=== PATIENT | male | born 1995 | race African-American/Black ===

== ENCOUNTER 2023-02-04 14:31 | Emergency (ER) | payer SELFPAY ==
[2023-02-04 14:31] VITALS: BP 118/63; PULSE 90; RESP 18; O2SAT 100
[2023-02-04 14:40] VITALS: BP 118/63; PULSE 96; RESP 20; TEMP 36.9; O2SAT 100
--- NOTE | 2023-02-04 14:41 | ECG_ITS ---
Measurements Intervals [place] Rate: 96 P: 69 [place]: 151 QRS: 64 QRSD: 86 T: 35 QT: 329 QTc: 416 Interpretive Statements SINUS RHYTHM ST ELEVATION, EARLY REPOLARIZATION [ST ELEVATION WITH NORMALLY INFLECTED T WAVE] OTHERWISE NORMAL ECG NO PREVIOUS ECG AVAILABLE FOR COMPARISON Electronically Signed On 02-05-2023 14:38:32 CDT by Aldair Dorantes M.D.
--- NOTE | 2023-02-04 15:01 | ED.GENADULT ---
HPI - General Adult General Chief complaint: Abdominal Pain Stated complaint: ams Time Seen by Provider: 02/04/23 14:46 Source: patient Limitations: no limitations History of Present Illness HPI narrative: Patient is a 27-year-old male presents to the emergency department for multiple complaints. Patient notes he was at class just prior to arrival approximately 1 hour ago and progressively and gradually noticed a generalized headache, generalized weakness, nausea without any emesis in addition to associated chills and generalized body aches. Patient does admit to being very hot out and he has not consumed anything in regard to fluids or food intake today. Patient notes that last night and earlier this morning he was otherwise feeling well. Patient admits to his symptoms improving. Patient denies trying anything for his symptoms. Patient has 2 history of these constellation of symptoms in the past when he had a fever without any significant diagnosis and it was near the COVID time. Patient denies any sick contacts. Patient denies any recent injuries, recent illness, numbness, focal weakness, abdominal pain, dysuria, hematuria, urinary frequency, urinary urgency, melena, constipation, sore throat, nasal congestion, vision changes, confusion, chest pain, shortness of breath, cough. Related Data Allergies Allergy/AdvReac Type Severity Reaction Status Date / Time No Known Allergies Allergy Verified 02/04/23 14:43 PMFSH Comments At time of signature, I have reviewed and agree with nursing past medical, surgical, social and family history unless otherwise noted. Please see nursing chart for further information. There is no relevant family history pertinent to the presenting complaint. Exam Narrative: CONST: No acute distress. Well nourished. HENMT: Head is normocephalic and atraumatic. Tacky mucous membranes. No posterior oropharynx erythema. EYES: No conjunctival icterus, injection, or pallor. PERRL. NECK: No meningeal signs. RESP: Able to speak in full sentences. Normal respiratory effort. CTAB. CARDIO: Regular rate. Regular rhythm. 2+ DP and radial pulses bilaterally. GI: Nondistended. No tenderness to palpation. Soft. : No CVA tenderness to palpation. SKIN: No rashes or lesions noted on exposed skin. NEURO: Oriented x3. Moves all extremities. EXTREM: No pedal edema. PSYCH: Normal affect. Course Vital Signs Vital signs: Vital Signs Pulse Rate 90 02/04/23 14:31 Respiratory Rate 18 02/04/23 14:31 Blood Pressure 118/63 02/04/23 14:31 Pulse Oximetry 100 02/04/23 14:31 Oxygen Delivery Room Air 02/04/23 14:31 Temperature 98.5 F 02/04/23 14:40 Pulse Rate 80 02/04/23 17:01 Respiratory Rate 12 02/04/23 17:01 Blood Pressure 122/72 02/04/23 17:01 Pulse Oximetry 100 02/04/23 17:01 Oxygen Delivery Room Air 02/04/23 14:31 Medical Decision Making MDM Narrative Medical decision making narrative: Patient presents as noted above, vitals stable, no acute distress. Suspect viral syndrome, and COVID testing positive. Patient refused IV, tolerating PO, stable gait. Patient instructed on isolation, work/school note provided, motrin and tylenol as needed for fever/pain, rest and hydration, return precautions, provided with follow up to a PCP to establish care, low risk for severe disease no indications for Paxlovid. Patient requesting discharge and discharged in stable condition with additional verbal and printed discharge instructions, all questions answered, patient agreed with plan of care. Differential Diagnosis Differential Diagnosis: Viral syndrome, URI, dehydration. Medical Records Medical records reviewed: Yes I reviewed the external patient's medical records. Vital Signs Vital Signs: Vital Signs Pulse Rate 90 02/04/23 14:31 Respiratory Rate 18 02/04/23 14:31 Blood Pressure 118/63 02/04/23 14:31 Pulse Oximetry 100 02/04/23 14:31 Oxygen Delivery Room Air
[2023-02-04] MEDS: ACETAMINOPHEN 500 MG TABLET 1000 MG PO (15:27)
[2023-02-04] MEDS: ONDANSETRON HCL ODT 4 MG TABLET PO (15:27)
[2023-02-04 16:09] LABS: Influenza A QL RT-PCR Negative (Negative); Influenza B QL RT-PCR Negative (Negative); SARS-CoV-2 RNA PCR Positive (Negative)
[2023-02-04 17:01] VITALS: BP 122/72; PULSE 80; RESP 12; O2SAT 100
--- NOTE | 2023-02-04 17:20 | PC.NURSE ---
Reviewed d/c instructions with pt. Pt reports he has no way to get home. This RN called Nayeli with [facility] about finding a ride for the pt. She states she will try to obtain a cab voucher for the pt.
--- NOTE | 2023-02-04 17:42 | PCCCNOTE ---
Call received from ER requesting transportation assistance for a pt who's ready to discharge. Old address in chart has him at the [facility] but he states he lives at [facility] and is a student at [employer]. Voucher given to nursing staff with [facility] address.
== END 2023-02-04 17:55 | disposition home or self-care (01) ==
PROVIDERS: Emergency Provider Student in an Organized Health Care Education/Training Program
DX: U07.1 COVID-19 (principal)
CPT/HCPCS: 87636; 93005; 99283; A9270